=== PATIENT | male | born 1980 | race Caucasian/White ===

== ENCOUNTER 2021-02-22 08:56 | Emergency (ER) | payer SELFPAY ==
[~2021-02-22] VITALS: Ht 188 cm; Wt 81.7 kg
[2021-02-22] MEDS ORDERED: ONDANSETRON ODT8 MG PO (09:25)
== END 2021-02-22 09:35 | disposition home or self-care (01) ==
LOC: ED 08:56
DX: S06.0X0A Concussion without loss of consciousness, initial encounter (principal); S30.0XXA Contusion of lower back and pelvis, initial encounter; F17.200 Nicotine dependence, unspecified, uncomplicated; W18.30XA Fall on same level, unspecified, initial encounter
CPT/HCPCS: 99283; A9270

== ENCOUNTER 2022-06-01 11:21 | Emergency (ER) | payer OTHER ==
[~2022-06-01 11:21] MED LIST: ONDANSETRON ODT8 MG PO
[2022-06-01] MEDS ORDERED: NARCAN4 MG NAS (12:46)
--- NOTE | 2022-06-01 17:52 | EKG ---
[facility] [address] [facility] [place] [address] Signed Normal sinus rhythm Minimal voltage criteria for LVH, may be normal variant ( Sokolow-Weber ) Prolonged QT Abnormal ECG No previous ECGs available Confirmed by DANIELE GREENE MD ([id number]) on 06/01/2022 5:52:35 PM Electronically Signed By: DANIELE GREENE MD 06/01/221751 PATIENT NAME: DENNIS JUAREZ Electrocardiogram DATE OF : 82 PHYSICIAN: DANIELE GREENE MD REPORT #: [id number] REPORT IS CONFIDENTIAL AND NOT TO BE RELEASED WITHOUT AUTHORIZATION
== END 2022-06-01 12:48 | disposition left against medical advice (07) ==
LOC: ED 11:21
DX: T40.2X1A Poisoning by other opioids, accidental (unintentional), initial encounter (principal); I10 Essential (primary) hypertension; F17.200 Nicotine dependence, unspecified, uncomplicated
CPT/HCPCS: 93005; 93010; 99284-25